=== PATIENT | female | born 1990 ===

== ENCOUNTER → 2024-05-13 07:28 | Outpatient (REF) | payer BC, SELFPAY | LOC: PNTC 07:28 | PROVIDERS: ATTENDING PHYSICIAN Obstetrics & Gynecology | DX: Z36.0 Encounter for antenatal screening for chromosomal anomalies (principal); O35.08X0 Maternal care for (suspected) central nervous system malformation or damage in fetus, spina bifida, not applicable or unspecified | CPT/HCPCS: 76811 ==

== ENCOUNTER 2024-09-20 05:14 | Inpatient (IN) | payer BC, SELFPAY ==
[2024-09-20 05:36] VITALS: BP 137/80; BMI 32.5
[2024-09-20 06:26] LABS: % Basophils 0.1 % (0-2); % Eosinophils 0.3 % (0-6); % Immature Granulocytes 0.7 % (0-0.5); % Lymphocytes 14.6 % (20.5-51.1); % Monocytes 5.5 % (1.7-9.3); % Neutrophils 78.8 % (42.2-75.2); Absolute Eosinophils 0.1 10^3/uL (0-0.7); Absolute Immature Granulocytes 0.1 10^3/uL (0-0.05); Absolute Lymphocytes 2.2 10^3/uL (1.2-3.4); Absolute Monocytes 0.8 10^3/uL (0.1-0.6); Absolute Neutrophils 12.1 10^3/uL (1.4-6.5); Hematocrit 34.1 % (37.0-47.0); Mean Corp Hgb Conc. 32.3 g/dL (33.0-37.0); Mean Corpuscular Hgb 24.8 pg (27.0-31.0); Mean Corpuscular Volume 76.8 fL (81.0-99.0); Mean Platelet Volume 9.6 fL (7.4-10.4); Nucleated Red Blood Cells % 0 %; Platelet Count 353 10^3/uL (130-400); Red Blood Cell Count 4.44 10^6/uL (4.20-5.40); Red Cell Dist. Width 15.6 % (11.5-14.5); White Blood Cell Count 15.4 10^3/uL (4.8-10.8)
[2024-09-20] MEDS: MOTRIN 600 MG PO ×3 (07:24→23:19)
[2024-09-20] MEDS: PRENATAL PLUS 1 TABLET PO (07:48)
[2024-09-20] MEDS: NICODERM TRANSDERMAL 21 MG TRANSDERM (07:51)
[2024-09-20] MEDS: ProAIR HFA INHALER 2 PUFF INH ×2 (08:14→19:37)
[2024-09-20] MEDS: TYLENOL 650 MG PO ×2 (08:53→20:25)
--- NOTE | 2024-09-20 14:51 | CM ---
Met with new parents Enedina and Ata at bedside
Parents are undecided on name for their daughter - possibly [place]
Confirmed address listed and phone number; living with mom in home are her grandparents, a cousin and her 2 children ( 9yo boy, 2yo girl) from previous relationships. Mom report shared custody of children with their fathers. Mom reports her
boyfriend Ata is this baby's father
Mom report + support from FOB, grandparents and cousin
Reports she has all supplies for her including clothing, car seat and crib
Planning to breast feed - requesting breast pump. Order faxed to [facility]
Peds - undecided - requested peds option list - given to her by RN
[facility]
Reports has been in WIC program in past - encouraged to reapply
Discussed importance of care and f/u care for mom and baby
Parents answering questions appropriately; concern for infants needs appropriate
CM remains available to family as needed
[2024-09-21 05:17] LABS: Hematocrit 30.3 % (37.0-47.0); Hemoglobin 9.4 g/dL (12.0-16.0)
[2024-09-21] MEDS: ProAIR HFA INHALER 2 PUFF INH ×2 (08:18→19:43)
[2024-09-21] MEDS: PRENATAL PLUS 1 TABLET PO ×2 (08:19→08:25)
[2024-09-21] MEDS: NICODERM TRANSDERMAL 21 MG TRANSDERM (08:21)
[2024-09-21] MEDS: TYLENOL 650 MG PO ×3 (08:27→23:28)
[2024-09-21] MEDS: MOTRIN 600 MG PO ×3 (08:27→23:28)
[2024-09-21] MEDS: FEOSOL 325 MG PO (19:47)
[2024-09-22] MEDS: ProAIR HFA INHALER 2 PUFF INH (08:36)
[2024-09-22] MEDS: PRENATAL PLUS 1 TABLET PO (09:13)
[2024-09-22] MEDS: SENOKOT-S 1 TABLET PO (09:14)
[2024-09-22] MEDS: FEOSOL 325 MG PO (09:14)
[2024-09-22] MEDS: MOTRIN 600 MG PO (09:14)
[2024-09-22] MEDS: TYLENOL 650 MG PO (09:14)
[2024-09-22] MEDS: NICODERM TRANSDERMAL 21 MG TRANSDERM (09:38)
[2024-09-24 11:53] LABS: Syphilis/T. pallidum Ab Reflex Negative (Negative)
== END 2024-09-22 12:42 | disposition home or self-care (01) | DRG 807 ==
LOC: LDRP 05:14
PROVIDERS: ADMITTING PHYSICIAN Student in an Organized Health Care Education/Training Program
PROC: 10E0XZZ Delivery of Products of Conception, External Approach (ICD-10-PCS; 2024-09-20)
DX: O77.0 Labor and delivery complicated by meconium in amniotic fluid (principal); Z37.0 Single live birth; Z3A.39 39 weeks gestation of pregnancy; O69.81X0 Labor and delivery complicated by cord around neck, without compression, not applicable or unspecified; O99.214 Obesity complicating childbirth; O99.334 Smoking (tobacco) complicating childbirth; F17.290 Nicotine dependence, other tobacco product, uncomplicated
CPT/HCPCS: 88307; 36415; 85014; 85018; 85025; 86780; 86850; 86900; 86901; 94640; 99406

== ENCOUNTER 2024-11-23 22:37 | Emergency (ER) | payer BC, SELFPAY ==
[2024-11-23 22:38] VITALS: BMI 31.4
[2024-11-23 23:04] VITALS: BP 135/81
[2024-11-23 23:07] LABS: HCG, Urine Qualitative Screen Negative
[2024-11-23] MEDS: HALDOL 1 MG IM (23:12)
[2024-11-23] MEDS: NICODERM TRANSDERMAL 21 MG TRANSDERM (23:13)
[2024-11-23 23:16] LABS: Amphetamines Negative (Negative); Barbiturates Negative (Negative); Benzodiazepines Negative (Negative); Buprenorphine Negative (Negative); Cocaine Negative (Negative); Marijuana Negative (Negative); Methadone Negative (Negative); Methamphetamines Negative (Negative); Opiates Negative (Negative); Phencyclidine Negative (Negative); Tricyclic Antidepressants Negative (Negative)
[2024-11-24 01:17] VITALS: BP 140/83
[2024-11-24 05:56] VITALS: BP 120/70
--- NOTE | 2024-11-24 06:35 | ED.GENMED ---
History of Present Illness
General
Chief Complaint: Psychiatric Problem
Source: patient
Exam Limitations: none
Time Seen by Provider: 11/23/24 22:54
Nursing documentation reviewed up to this point in time: agreed with
History of Present Illness
History of Present Illness:
34-year-old female brought emerged by multiple police officers as and EMS for psychotic episode. She was found driving erratically and pulled over by police. She stated that she needed to come to the emergency department to get her meds. Patient
was in the vicinity of [facility]. She refused to go to [place] and instead wanted to come to [place]. When the police tried to help her she 'donkey kicked 'one of them and became very combative. Patient was brought in via police
escort screaming and yelling. She kept requesting lorazepam. When we tried to give it to her she refused and then she eventually took it and spit it out. Patient was handcuffed to the bed and was eventually restrained with leather restraints. I
did have to give her Haldol that she slipped out of the restraints and was a danger to herself. When the Haldol kicked in patient became somnolent. Crisis attempted several times to meet with her and patient was either too somnolent or
uncooperative. Psychiatric consult placed for morning.
Review of Systems
Review of Systems
Allergies reviewed?: Yes
All Other Systems: ROS reviewed and negative except as documented in HPI and ROS
Psychiatric: Reports anxiety
Phy Exam
General Physical Exam
General Presentation: well appearing and moderate distress (Psychiatric distress)
General age: appears older than age
General Skin: warm and dry
General Habitus: normal
General Mental: alert, angry, anxious and verbally abusive
General Hydration: appears well hydrated
ENT Exam
ENT Exam: EOMI, pharynx normal, neck supple and normocephalic
Eye Exam
Eye Exam: PERRL, cornea clear and conjunctiva normal
Cardiovascular Exam
Cardiovascular Exam: regular rate/rhythm, no edema, no murmur and normal peripheral pulses
Pulmonary Exam
Pulmonary Exam: lungs clear, no respiratory distress, no rales, no crackles, no rhonchi, no stridor, no wheezing and no cough
Gastrointestinal Exam
Gastrointestinal Exam: normal bowel sounds, non tender, soft, no organomegaly, no pulsatile mass and non distended
Neurological Exam
Neurological Exam: alert, oriented x3, no motor deficits and speech normal
Musculoskeletal Exam
Musculoskeletal Exam: full ROM and no edema
Skin Exam
Skin Exam: normal color, warm/dry, no rash and no petechia
Psychiatric Exam
Psychiatric Exam: agitated, anxious, delusions and paranoia
Course
Orders/Labs/Results
Orders:
Orders
11/23/24 22:39
Lorazepam [Ativan] 2 mg .ROUTE .STK-MED ONE
11/23/24 22:45
1:1 Observation - Suicide/ Violent Behavior As Directed
11/23/24 22:55
HCG, Urine Qualitative Screen Urgent
Date Specimen was Collected: 11/23/24
Time Specimen was Collected: 22:56
Urine Drug Abuse Screen Urgent
Date Specimen was Collected: 11/23/24
Time Specimen was Collected: 22:56
Test Result ONCE
11/23/24 23:06
Nicotine [Nicoderm Transdermal] 21 mg TRANSDERM NOW STA
11/23/24 23:09
Haloperidol Lactate [Haldol] 1 mg IM NOW STA
11/24/24 01:03
Crisis Consult Urgent
Reason for Consult: psychotic episode
11/24/24 05:04
Consult Notification Routine
Specialty to Notify: Psychiatry
PSYCHIATRY CONSULT Urgent
Consulting Provider: Georgi Cruz
Was physician already notified: No
Reason for consult: Aparna, psychosis
11/24/24 08:00
Nicotine [Nicoderm Transdermal] 21 mg TRANSDERM DAILY
Vital Signs
Initial and Last Documented VS:
Initial Vital Signs
Temp Pulse BP Pulse Ox
98.0 F 130 135/81 98
11/23/24 23:04 11/23/24 23:04 11/23/24 23:04 11/23/24 23:04
Last Documented Vital Signs
Temp Pulse Resp BP Pulse Ox
97.4 F 92 18 120/70 97
11/24/24 01:17 11/24/24 05:56 11/24/24 05:56 11/24/24 05:56 11/24/24 05:56
*Pulse Oximetry
Patient hypoxic: no (97% on room air)
*Critical Care Note
Total Time (30-74mins, 75-104mins- exclusive of procedures): Not Applicable
ED Attending Note
-
Portions of this chart may have been created with voice recognition software.� Occasional wrong word or��sound alike� substitutions may have occurred due to the inherent limitations of voice recognition software.
Discharge Plan
Departure
Prescriptions:
No Action
albuterol 90 mcg/actuation Aerosol
90 mcg INHALATION BID
prenat.vits,archana,vhm-swoa-swcvt Tablet
1 tab PO DAILY
acetaminophen 325 mg Tablet
650 mg PO Q4HPRN PRN (Reason: mild pain) Qty: 0 0RF
sennosides-docusate sodium 8.6-50 mg Tablet
1 tab PO DAILYPRN PRN (Reason: constipation) Qty: 0 0RF
ferrous sulfate [FeroSul] 325 mg (65 mg iron) Tablet
325 mg PO DAILY Qty: 30 0RF
nicotine 21 mg/24 hr Patch 24 Hour
21 mg transdermal DAILY Qty: 30 0RF
ibuprofen 600 mg Tablet
600 mg PO Q6HPRN PRN (Reason: moderate pain/cramps) Qty: 30 0RF
Referrals:
UNKNOWN - PT DOES,NOT KNOW [Family Provider]
Interventions
Interventions:
*Risk Screen - Suicide Last Done: 11/23/24 23:04
*General Assessment Last Done: 11/23/24 23:04
*Neglect/Abuse Screening Last Done: 11/23/24 23:04
*ED- Fall Risk Assessment Last Done: 11/23/24 23:04
*ED COVID-19 Vaccine History Last Done: 11/23/24 23:04
ED-Psychological Assessment Last Done: 11/23/24 23:37
Discharge Date and Time
Print Language: BENINESE
--- NOTE | 2024-11-24 08:24 | ED.CRISIS ---
ED Crisis Note
ED Crisis Note
Subjective:
Resting comfortably
Objective:
Required sedation
Assessment/Plan:
Patient apparently was agitated psychotic while driving aggressive required sedation urine drug screen noted awaiting psychiatric evaluation like to let her wake up here to see if her deal with anything else besides psychiatric issues
12:30 PM update patient awake coughing requesting her inhaler states her child is with her family
[2024-11-24 08:48] VITALS: BP 134/76
--- NOTE | 2024-11-24 09:38 | CON.MD ---
Addendum entered and electronically signed by Georgi Cruz MD 11/24/24 16:16:
Pt. seen again around 3:30 PM. She is now awake and oriented. Calm and pleasant. No evidence of paranoia. Denies hallucinating. She does report that she has racing thoughts and that has happened to her in the past. Has had past psychiatric
hospitalizations. She does not remember much of last night. CM obtained information that her children are safe and being cared for. I asked her if she had a diagnosis and she did not seem to know. She had a hospitalization after the second child
was born as well. She works at a [employer] and seems to enjoy her job.
[facility] was accepted to [facility] voluntary patient and she will be transported at 6:30 PM.
Original Note:
Consultation - Medical
-
34 y/o woman delivered a baby girl here at on 09/20/24 brought by ambulance after erratic behavior in the community including driving on the sidewalk and then being combative with police and EMS. Banged head in ambulance. She is not known to
aside from the delivery and is not known to [facility]. Apparently she described herself as crazy and wanting help in the field. A 'backup' 302 by police was reviewed and ER physician notes. She was given Haldol 1 mg. IM at 23:09 last night and has
been very somnolent since.
I went to her room at 9:00 and she was asleep. I was able to slightly rouse her and she only uttered a few words. She said she sees a psychiatrist but is not on medications. Her answer regarding past hospitalizations was ambiguous and she was too
sedated to respond to further questioning. She does appear to be genuinely sedated. Case discussed with Dr. Alverto Prater. She clearly needs psychiatric admission regardless of diagnosis. I have asked ER doctor to have CM involved regarding safety
of her children.
UDS completely negative. No other labs available.
Preliminary Diagnosis: Post- Psychosis
I will return to see her later today when she is awake.
--- NOTE | 2024-11-24 09:39 | EDRN ---
call to crisis to see if anyone contacted adriano's mother
--- NOTE | 2024-11-24 10:08 | EDRN ---
Call to Police-- they state that when Enedina was pulled over- there was no mention of a baby. They recall a baby car seat base in the car. Enedina was so confused and agitated that there was no conversation by them re- baby .
Enedina is refusing to allow [facility] or me to call her mom to check on the baby. I called Police and asked the officers to assist in finding the wheraboutsw of this child. They will call the listed number of the mother and call me back. CM updated.
[facility] updated
Enedina has 2 other childfen- and lives with her mom/ grandparents and cousin
--- NOTE | 2024-11-24 10:31 | EDRN ---
nEedina villeda allowed me to call her mom. I spoke with her mom- the baby is with the ' grandparents' and her other 2 children are not in Enedina's custody .
--- NOTE | 2024-11-24 11:42 | EDRN ---
[employer] form completed
[facility] Police and [place] Police state that the baby is in the care of Enedina Jain, the baby's great grandmother
[2024-11-24] MEDS: ProAIR HFA INHALER 2 PUFF INH (13:05)
--- NOTE | 2024-11-24 13:06 | PTCARENOTE ---
Pt requesting Albuterol Inhaler. Respiratory bedside giving pt Albuterol. Will continue to monitor.
[2024-11-24 16:06] VITALS: BP 135/72
== END 2024-11-24 20:40 ==
LOC: EMR 22:37
PROVIDERS: Student in an Organized Health Care Education/Training Program; CONSULT PHYSICIAN Psychiatry & Neurology Psychiatry; EMERGENCY PHYSICIAN Emergency Medicine
DX: F53.1 Puerperal psychosis (principal); F22 Delusional disorders; R45.1 Restlessness and agitation; R05.9 Cough, unspecified; F19.10 Other psychoactive substance abuse, uncomplicated; F41.9 Anxiety disorder, unspecified; F12.90 Cannabis use, unspecified, uncomplicated
CPT/HCPCS: 99285; 94640; 96372; 80306; 81025